=== PATIENT | male | born 1985 | race Asian ===

== ENCOUNTER 2018-07-20 17:25 | Emergency (ER) | payer OTHER ==
[~2018-07-20] VITALS: Ht 167.6 cm; Wt 97.5 kg
[2018-07-20 18:19] LABS: PLATELET COUNT 283 K/uL (142-355)
[2018-07-20 18:25] LABS: POTASSIUM 3.9 mmol/L (3.6-5.2)
[2018-07-20 19:34] VITALS: BP 155/104; TEMP 98.7
== END 2018-07-20 19:36 | disposition home or self-care (01) ==
LOC: ED 17:25
PROVIDERS: Family Medicine
DX: I10 Essential (primary) hypertension (principal)
CPT/HCPCS: 36415; 80053; 81000; 85027; 99283

== ENCOUNTER 2019-08-16 15:07 | Outpatient (CLI) | payer OTHER | END 2019-08-16 19:10 | disposition home or self-care (01) | LOC: RAD 15:07 | DX: M54.5 Low back pain (principal) ==